=== PATIENT | female | born 1955 | race Caucasian/White ===

== ENCOUNTER 2017-04-20 11:45 | Emergency (ER) | payer BC ==
[2017-04-20] MEDS ORDERED: Ondansetron INJ* 2 MG/ML VIAL IV ONE (13:25)
[2017-04-20] MEDS ORDERED: Morphine INJ* 4 MG/ML 1 ML CARPUJECT IV ONE (13:25)
[2017-04-20 14:32] LABS: ABS Basophils 0 10^3/ul (0-0.2); ABS Eosinophils 0.1 10^3/ul (0-0.6); ABS Lymphocytes 1.4 10^3/ul (1.0-4.8); ABS Monocytes 0.6 10^3/ul (0-0.8); ABS Neutrophils 5.4 10^3/ul (1.5-7.7); ABS Nucleated RBC 0 10^3/ul; Eosinophil % 1.3 % (0-6); Hematocrit 40 % (35-47); Hemoglobin 13.7 g/dl (12.0-16.0); Lymphocyte % 18.4 % (25-47); Mean Corpuscular HGB Conc 34 g/dl (31-36); Mean Corpuscular Hemoglobin 28 pg (27-31); Mean Corpuscular Volume 81 fL (80-97); Mean Platelet Volume 8 um3 (7.4-10.4); Nucleated Red Blood Cells % 0.1; Platelet Count 186 10^3/ul (150-450); Red Blood Count 4.94 10^6/ul (4.0-5.4); Red Cell Distribution Width 14 % (10.5-15); White Blood Count 7.5 10^3/ul (3.5-10.8)
[2017-04-20 15:04] LABS: EGFR Non-African American 87.7 (>60)
[2017-04-20] MEDS ORDERED: Iohexol 300* (CONTRAST) 10 ML SDV IV ONE (15:18)
--- NOTE | 2017-04-20 16:31 | RAD ---
CLINICAL HISTORY: Abdominal pain, left upper quadrant pain COMPARISON: CT of the chest dated September 29, 2014 TECHNIQUE: Multiple contiguous axial CT scans were obtained of the abdomen and pelvis after the administration of intravenous contrast. Coronal and sagittal multiplanar reformations are submitted for review. Oral contrast was administered. Delayed images were obtained through the abdomen and pelvis. FINDINGS: LUNG BASES: There are multiple small nodules within the lungs bilaterally measuring up to 0.4 cm in size. There is dilatation of the ascending thoracic aorta up to 5.2 cm. This is similar to the previous examination. 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 LIVER: There has been interval development of a heterogeneously low-attenuation mass of the posterior superior segment of the right lobe of liver with smaller lesions noted elsewhere. The dominant mass measures approximately 9.6 x 6.7 cm transversely. BILE DUCTS: There is no intrahepatic or extrahepatic biliary dilatation. GALLBLADDER: The gallbladder is normal, without pericholecystic inflammatory change. PANCREAS: The pancreas is normal, without mass or ductal dilatation. SPLEEN: Normal in size and appearance. UPPER GI TRACT: Evaluation of the gastrointestinal tract is limited by incomplete gastric distention. The upper GI tract is unremarkable. SMALL BOWEL AND MESENTERY: The small bowel is normal in contour, course, and caliber. There is no obstruction or dilatation. COLON: The colon is normal in contour, course, caliber. There is no pericolonic inflammatory change. ADRENALS: Normal bilaterally. KIDNEYS: The kidneys are normal in shape, size, contour, and axis. There is no hydronephrosis or nephrolithiasis. BLADDER: The bladder is smooth in contour. PELVIC ORGANS: The uterus and adnexa are grossly normal for technique. AORTA: There is calcific atherosclerotic disease of the abdominal aorta and its branches, without aneurysmal dilatation IVC: Unremarkable LYMPH NODES: There are enlarged centrally necrotic lymph nodes noted at the level of the brianna hepatis, and in the aortocaval space, with prominent lymph nodes noted in the left para-aortic space. The largest lymph node measures up to 2.1 cm in short axis. ABDOMINAL WALL: There is no evidence for abdominal wall hernia. BONES AND SOFT TISSUES: Degenerative changes noted of the spine. OTHER: None IMPRESSION: 1. THERE HAS BEEN INTERVAL DEVELOPMENT OF AN ILL-DEFINED LOW-ATTENUATION MASS OF THE RIGHT LOBE OF LIVER, WITH MULTIPLE SMALLER LESIONS THROUGHOUT THE LIVER. THE DOMINANT MASS MEASURES UP TO 9.6 CM IN SIZE. THIS IS MOST CONSISTENT WITH NEOPLASM. 2. ADDITIONALLY, THERE ARE MULTIPLE PULMONARY PARENCHYMAL NODULES WELL RETROPERITONEAL LYMPHADENOPATHY CONSISTENT WITH METASTATIC DISEASE. 3. ATHEROSCLEROSIS. 4. 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
[2017-04-20 16:47] LABS: Urine Appearance Clear; Urine Blood Negative (Negative); Urine Color Yellow; Urine Ketones Negative (Negative); Urine Protein Negative (Negative); Urine Specific Gravity 1.021 (1.010-1.030); Urine Urobilinogen Negative (Negative)
[2017-04-20] MEDS ORDERED: oxyCODONE/Acetamin 5/325 MG* TAB PO ONE (18:07)
[2017-04-20 18:27] VITALS: BP 132/85
--- NOTE | 2017-04-21 16:48 | ED ---
Rohan Guerrero Thomas, scribed for Luis A Alejo MD on 04/20/17 at 1421 . Abdominal Pain/Female - HPI Summary HPI Summary: The patient presents with LUQ abdominal pain for the last two weeks that radiates to her back. The pain is rated 7/10 and she describes it as a knot. She complains of constipation, and her last BM was two days ago. She is not on any pain medication. She denies nausea, vomiting, and diarrhea. Past medical history includes ascending aorta aneurysm, paracentesis, and paroxysmal A-Fib. - History of Current Complaint Chief Complaint: EDAbdPain Stated Complaint: ABD PAIN Time Seen by Provider: 04/20/17 13:17 Hx Obtained From: Patient Onset/Duration: Lasting Weeks - 2, Still Present Timing: Constant Pain Intensity: 5 Pain Scale Used: 0-10 Numeric Location: Discrete At: LUQ Radiates: Yes Radiates to: Back Character: Other: - "knot" Aggravating Factor(s): Nothing Alleviating Factor(s): Nothing Associated Signs and Symptoms: Positive: Constipation. Negative: Nausea, Vomiting, Diarrhea Allergies/Adverse Reactions: Allergies Allergy/AdvReac Type Severity Reaction Status Date / Time BEES Allergy Unknown Difficulty Uncoded 04/20/17 16:02 Breathing Home Medications: Home Medications Albuterol HFA INHALER* [Ventolin HFA Inhaler*] 1 puff INH Q4H PRN 04/20/17 [ History Confirmed 04/20/17] Aspirin EC TAB* [Ecotrin EC TAB*] 975 mg PO QAM 04/20/17 [History Confirmed 11/27] Aspirin EC TAB* [Ecotrin EC TAB*] 975 mg PO QPM 04/20/17 [History Confirmed 11/27] Atorvastatin* [Lipitor*] 40 mg PO DAILY 04/20/17 [History Confirmed 04/20/17] Cetirizine* [ZyrTEC 10 MG TAB*] 10 mg PO DAILY 04/20/17 [History Confirmed 04/20] Ferrous Fum/Liver Ext/Bcomp,C [Liver with Iron Tablet] 1 - 2 tab PO DAILY [History Confirmed 04/20/17] Metoprolol Succinate XL TAB* [Toprol XL TAB*] 100 mg PO DAILY 04/20/17 [History Confirmed 04/20/17] Omeprazole CAP* [Prilosec CAP* 20 MG] 40 mg PO DAILY 04/20/17 [History Confirmed 04/20/17] amLODIPine TAB* [Norvasc 5 mg TAB*] 2.5 mg PO DAILY 04/20/17 [History Confirmed 04/20/17] PMH/Surg Hx/FS Hx/Imm Hx Endocrine/Hematology History: Denies: Hx Diabetes Cardiovascular History: Denies: Hx Congestive Heart Failure Psychiatric History: Reports: Hx Substance Abuse - went to rehab 3 years ago per her report - Immunization History Date of Tetanus Vaccine: Unsure Date of Influenza Vaccine: unsure Infectious Disease History: No Infectious Disease History: Denies: Traveled Outside the [place] in Last 30 Days - Family History Known Family History: Positive: Other - Patinet denies relevant FHx - Social History Alcohol Use: None Substance Use Type: Reports: None Smoking Status (MU): Former Smoker Review of Systems Negative: Fever Positive: Abdominal Pain, Other - constipation. Negative: Vomiting, Diarrhea, Nausea All Other Systems Reviewed And Are Negative: Yes Physical Exam - Summary Physical Exam Summary: VITAL SIGNS: Reviewed. GENERAL: Patient is a well-developed and nourished female who is lying comfortable in the stretcher. Patient is not in any acute respiratory distress. HEAD AND FACE: No signs of trauma. No ecchymosis, hematomas or skull depressions. No sinus tenderness. EYES: PERRLA, EOMI x 2, No injected conjunctiva, no nystagmus. EARS: Hearing grossly intact. Ear canals and tympanic membranes are within normal limits. MOUTH: Oropharynx within normal limits. NECK: Supple, trachea is midline, no adenopathy, no JVD, no carotid bruit, no c- spine tenderness, neck with full ROM. CHEST: Symmetric, no tenderness at palpation LUNGS: Clear to auscultation bilaterally. No wheezing or crackles. CVS: Regular rate and rhythm, S1 and S2 present, no murmurs or gallops appreciated. ABDOMEN: Soft. She has RUQ and LUQ tenderness. No signs of distention. No rebound no guarding, and no masses palpated. Bowel sounds are normal. EXTREMITIES: FROM in all major joints, no edema, no cyanosis or clubbing. NEURO: Alert and oriented x 3. No acute neurological deficits. Speech is normal and follows commands. SKIN: Dry and warm Triage Information Reviewed: Yes Vital Signs On Initial Exam: Initial Vitals Temp Pulse Resp BP Pulse Ox 97.9 F 72 18 130/98 95 04/20/17 11:55 04/20/17 11:55 04/20/17 11:55 04/20/17 11:55 04/20/17 11:55 Vital Signs Reviewed: Yes Diagnostics - Vital Signs Vital Signs Temp Pulse Resp BP Pulse Ox 04/20/17 14:11 17 04/20/17 11:55 97.9 F 72 18 130/98 95 - Laboratory Result Diagrams: 04/20/17 14:05 04/20/17 14:05 Lab Statement: Any lab studies that have been ordered have been reviewed, and results considered in the medical decision making process. - CT CT Abd/Pel CT Interpretation: Positive (See Comments) - 1. THERE HAS BEEN INTERVAL DEVELOPMENT OF AN ILL-DEFINED LOW-ATTENUATION MASS OF THE RIGHT LOBE OF LIVER, WITH MULTIPLE SMALLER LESIONS THROUGHOUT THE LIVER. THE DOMINANT MASS MEASURES UP TO 9.6 CM IN SIZE. THIS IS MOST CONSISTENT WITH NEOPLASM. 2. ADDITIONALLY, THERE ARE MULTIPLE PULMONARY PARENCHYMAL NODULES WELL RETROPERITONEAL LYMPHADENOPATHY CONSISTENT WITH METASTATIC DISEASE. 3. ATHEROSCLEROSIS. 4. 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 Dr. Alejo has reviewed this report. CT Interpretation Completed By: Radiologist - EKG 13:36 Cardiac Rate: NL EKG Rhythm: Atrial Fibrillation - at 71 BPM EKG Interpretation: TWI in V3, V4. This is new since previous EKG on 09/29/14. Abdominal Pain Fem Course/Dx - Course Course Of Treatment: The patient presents with LUQ abdominal pain for the last two weeks that radiates to her back. The pain is rated 7/10 and she describes it as a knot. She complains of constipation, and her last BM was two days ago. She is not on any pain medication. She denies nausea, vomiting, and diarrhea. Past medical history includes ascending aorta aneurysm, paracentesis, and paroxysmal A-Fib. Test results are without any significant abnormalities except sodium 125. Urinalysis is negative for UTI. CT Abd/Pel shows 1. THERE HAS BEEN INTERVAL DEVELOPMENT OF AN ILL-DEFINED LOW-ATTENUATION MASS OF THE RIGHT LOBE OF LIVER, WITH MULTIPLE SMALLER LESIONS THROUGHOUT THE LIVER. THE DOMINANT MASS MEASURES UP TO 9.6 CM IN SIZE. THIS IS MOST CONSISTENT WITH NEOPLASM. 2. ADDITIONALLY, THERE ARE MULTIPLE PULMONARY PARENCHYMAL NODULES WELL RETROPERITONEAL LYMPHADENOPATHY CONSISTENT WITH METASTATIC DISEASE. 3. ATHEROSCLEROSIS. 4. 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 At this point, I offered the patient admission to the hospitalist. Dr. Delaney accepted the patient, however the patient declined admission. I discussed the case with Dr. Stephens, and she is OK with the patient being discharged. Dr. Stephens will see the patient at an appointment in three days for further workup. The patient is being given pain medication and will follow up with Dr. Stephens in three days. The patient is hemodynamically stable and alert and oriented x3. - Diagnoses Provider Diagnoses: Abdominal pain, Hyponatremia, Liver mass - Provider Notifications Discussed Care Of Patient With: Vanessa Delaney Time Discussed With Above Provider: 17:30 Instructed by Provider To: Other - Dr. Delaney, hospitalist, accepted the patient for admission. I also consulted with Dr. Stephens, who will see the patient in three days. Discharge - Discharge Plan Condition: Stable Disposition: HOME Prescriptions: oxyCODONE/Acetamin 5/325 MG* [Percocet 5/325 TAB*] 1 tab PO Q6H PRN #12 tab MDD 4 PRN Reason: Pain Patient Education Materials: Hyponatremia (ED), Abdominal Pain (ED) Referrals: Vanessa Stephens MD [Medical Doctor] - 04/23/17 Additional Instructions: Follow up with Dr. Stephens, oncology, on Sunday, 04/23. Return to the emergency department for any new or worsening symptoms. The documentation as recorded by the Rohan marie Thomas accurately reflects the service I personally performed and the decisions made by me, Luis A Alejo MD.
== END 2017-04-20 18:25 | disposition home or self-care (01) ==
LOC: ED 11:45
DX: R10.12 Left upper quadrant pain (principal); E87.1 Hypo-osmolality and hyponatremia; R16.0 Hepatomegaly, not elsewhere classified; I70.0 Atherosclerosis of aorta; Z87.891 Personal history of nicotine dependence
CPT/HCPCS: 36415; 74177; 80053; 81003; 82150; 82550; 83690; 83735; 84484; 85025; 86140; 93005; 96374; 96375; 99283; A9270-GY; J2270; J2405; Q9967

== ENCOUNTER 2017-07-02 13:41 | Inpatient (IN) | payer BC ==
[2017-07-02] MEDS ORDERED: Prochlorperazine TAB* 10 MG PO PRN (13:57)
[2017-07-02] MEDS: Morphine TAB Extended Release (*) 30 MG TAB.ER PO SCH ×2 (16:06→21:02)
[2017-07-02] MEDS: Magnesium Oxide TAB* 400 MG PO SCH ×2 (16:07→21:02)
[2017-07-02] MEDS: Enoxaparin(*) 40 MG/0.4 ML SYR SUBCUT SCH (16:08)
[2017-07-02] MEDS: NS 0.9% 1000 ML* 1,000 ML IV SCH ×2 (16:12→16:50)
--- NOTE | 2017-07-02 16:29 | RAD ---
Indication: Rising bilirubin. Intrahepatic bile duct carcinoma. Biopsy-proven cholangiocarcinoma lesion at the posterior RIGHT hepatic lobe from fine-needle aspiration biopsy performed April 30, 2017. Comparison: June 25, [address] and April 20, [address] Technique: RIGHT upper quadrant ultrasound. Report: Limited exam due to inability to hold breath. Small RIGHT pleural effusion noted likely increase in size from the June 25, [address] Appropriate direction flow documented in the portal and hepatic veins. 14.1 cm liver is heterogeneously increased in echogenicity. Multiple ill-defined focal mildly hypoechoic lesions with the largest seen at the posterior dome of the RIGHT hepatic lobe measuring up to 9.2 x 5.9 x 5.0 cm. Comparison with the prior CT is limited due to difference in technique. Negative for intrahepatic biliary dilatation. 8.2 mm mildly dilated common bile duct without significant change compared with June 25, [address] Adequately distended gallbladder with normal range 2.4 mm wall is remarkable for a small volume of dependent biliary sludge. Diffuse abdominal pain on exam without compelling specific sonographic Wilcox's sign. The pancreas is largely obscured due to bowel gas. The visualized pancreas is without gross evidence for duct dilatation. Negative for ascites. 10.9 cm RIGHT kidney is unremarkable. IMPRESSION: 1. Small RIGHT pleural effusion slightly increased in size from June 25, [address] 2. Multiple ill-defined focal mildly hypoechoic lesions with the largest seen at the posterior dome of the RIGHT hepatic lobe measuring up to 9.2 x 5.9 x 5.0 cm. Comparison with the prior CT is limited due to difference in technique. 3. Mild extrahepatic biliary dilatation without significant interval change compared with June 25, [address] The biliary dilatation appears new compared with the April 20, [address] 4. Negative for ascites.
[2017-07-02] MEDS: traMADol TAB* 50 MG PO PRN (21:03)
[2017-07-03] MEDS: NS 0.9% 1000 ML* 1,000 ML IV SCH (02:51)
[2017-07-03 06:50] LABS: Hematocrit 28 % (35-47); Hemoglobin 10.2 g/dl (12.0-16.0); Mean Corpuscular HGB Conc 36 g/dl (31-36); Mean Corpuscular Hemoglobin 28 pg (27-31); Mean Corpuscular Volume 78 fL (80-97); Mean Platelet Volume 7.4 um3 (7.4-10.4); Platelet Count 177 10^3/ul (150-450); Red Blood Count 3.58 10^6/ul (4.0-5.4); Red Cell Distribution Width 15 % (10.5-15); White Blood Count 7.7 10^3/ul (3.5-10.8)
[2017-07-03 06:54] LABS: ABS Basophils 0 10^3/ul (0-0.2); ABS Eosinophils 0 10^3/ul (0-0.6); ABS Lymphocytes 0.5 10^3/ul (1.0-4.8); ABS Monocytes 0.1 10^3/ul (0-0.8); ABS Neutrophils 7.1 10^3/ul (1.5-7.7); ABS Nucleated RBC 0 10^3/ul; Eosinophil % 0.6 % (0-6); Nucleated Red Blood Cells % 0
[2017-07-03 07:04] LABS: EGFR Non-African American 176.4 (>60)
[2017-07-03] MEDS: amLODIPine TAB* 5 MG PO SCH ×2 (08:19→20:46)
[2017-07-03] MEDS: Atorvastatin* 40 MG TAB PO SCH (08:19)
[2017-07-03] MEDS: Multivitamins/Minerals TAB PO SCH (08:20)
[2017-07-03] MEDS: Cetirizine* 10 MG TAB PO SCH (08:20)
[2017-07-03] MEDS: Magnesium Oxide TAB* 400 MG PO SCH ×3 (08:20→20:46)
[2017-07-03] MEDS: Aspirin 81 mg CHEW TAB* 81 MG TAB.CHEW PO SCH (08:20)
[2017-07-03] MEDS: Morphine TAB Extended Release (*) 30 MG TAB.ER PO SCH ×3 (08:20→20:46)
[2017-07-03] MEDS: Omeprazole CAP* 20 MG PO SCH (08:20)
[2017-07-03] MEDS: Potassium Chlor TAB* 20 MEQ TAB.ER PO SCH (08:20)
[2017-07-03] MEDS: Metoprolol Succinate XL TAB* 100 MG PO SCH (08:20)
[2017-07-03] MEDS: traMADol TAB* 50 MG PO PRN ×3 (08:21→22:29)
[2017-07-03] MEDS: Sodium Chloride TAB* 1 GM PO SCH ×3 (09:13→20:46)
--- NOTE | 2017-07-03 10:11 | PN ---
Progress Note - Progress Note Date of Service: 07/03/17 SOAP: Subjective: [Ana M reports that she is feeling relatively poorly. She has some dyspnea at rest, noted LE edema develop with IVF. She rates her chronic abdominal pain at ~4/10, which she states is manageable. She is drinking Kefir and gatorade, not interested in eating anything else.] Objective: [ Amlodipine Besylate (Norvasc Tab*) 2.5 mg PO DAILY [facility] Aspirin (Aspirin 81 Mg Chew Tab*) 81 mg PO DAILY [facility] Last Admin: 07/03/17 08:20 Dose: 81 mg Atorvastatin Calcium (Lipitor*) 40 mg PO DAILY [facility] Last Admin: 07/03/17 08:19 Dose: 40 mg Cetirizine HCl (Zyrtec*) 10 mg PO DAILY [facility] PRN Reason: Protocol Last Admin: 07/03/17 08:20 Dose: 10 mg Enoxaparin Sodium (Lovenox(*)) 40 mg SUBCUT Q24H [facility] Last Admin: 07/02/17 16:08 Dose: 40 mg Heparin Sodium (Porcine) (Heparin Flush Port (Ivad)) 5 ml FLUSH DAILY [facility] PRN Reason: Protocol Last Admin: 07/03/17 09:19 Dose: 5 ml Magnesium Oxide (Magox 400 Tab*) 800 mg PO TID [facility] Last Admin: 07/03/17 08:20 Dose: 800 mg Metoprolol Succinate (Toprol Xl Tab*) 100 mg PO DAILY [facility] Last Admin: 07/03/17 08:20 Dose: 100 mg Morphine Sulfate (Ms Contin(*)) 30 mg PO TID [facility] Last Admin: 07/03/17 08:20 Dose: 30 mg Multivitamins/Minerals (Theragran/Minerals Tab*) 1 tab PO DAILY [facility] Last Admin: 07/03/17 08:20 Dose: 1 tab Omeprazole (Prilosec Cap*) 40 mg PO DAILY@0730 [facility] Last Admin: 07/03/17 08:20 Dose: 40 mg Potassium Chloride (Klor Con Er Tab*) 20 meq PO DAILY WITH MEAL [facility] Last Admin: 07/03/17 08:20 Dose: 20 meq Prochlorperazine (Compazine Tab*) 10 mg PO Q6H PRN PRN Reason: NAUSEA Sodium Chloride (Sodium Chloride Tab*) 1 gm PO TID [facility] Last Admin: 07/03/17 09:13 Dose: 1 gm Tramadol HCl (Ultram*) 50 mg PO Q6HR PRN PRN Reason: PAIN Last Admin: 07/03/17 08:21 Dose: 50 mg Laboratory Results - last 24 hr 07/03/17 07/03/17 06:24 06:24 WBC 7.7 RBC 3.58 L Hgb 10.2 L Hct 28 L MCV 78 L MCH 28 MCHC 36 RDW 15 Plt Count 177 MPV 7.4 Neut % (Auto) 92.4 H Lymph % (Auto) 6.0 L [place] % (Auto) 0.8 Eos % (Auto) 0.6 Baso % (Auto) 0.2 Absolute Neuts (auto) 7.1 Absolute Lymphs (auto) 0.5 L Absolute Monos (auto) 0.1 Absolute Eos (auto) 0 Absolute Basos (auto) 0 Absolute Nucleated RBC 0 Nucleated RBC % 0 Sodium 119 L* Potassium 4.4 Chloride 88 L Carbon Dioxide 25 Anion Gap 6 BUN 8 Creatinine 0.37 L Est GFR ( Amer) 226.8 Est GFR (Non-Af Amer) 176.4 BUN/Creatinine Ratio 21.6 H Glucose 119 H Calcium 8.2 L Magnesium 1.8 L Total Bilirubin 1.60 H AST 47 H ALT 27 Alkaline Phosphatase 197 H Total Protein 5.8 L Albumin 2.8 L Globulin 3.0 Albumin/Globulin Ratio 0.9 L Vital Signs: Temp Pulse Resp BP Pulse Ox 97.4 F 84 18 125/75 99 07/03/17 07:19 07/03/17 07:19 07/03/17 08:21 07/03/17 07:19 07/03/17 07:19 Exam: Gen: 62 yo female who appears chronically ill in NAD HEENT: MMM CV: RRR, murmur appreciated Resp: lungs CTA Abd: soft, diffusely TTP, bowel sounds present Ext: trace to 1+ edema] Assessment: [62 yo female with metastatic cholangiocarcinoma who had rather significant disease progression with immunotherapy who was admitted yesterday for severe hyponatremia following treatment with gemcitabine 06/29. She has progressive dyspnea related to pulm mets and chronic abd pain due to her malignancy which is reported as manageable.] Plan: [1. Hyponatremia - there is some chronicity to this, baseline in the mid 120s, likely due to SIADH - relatively asx - little improvement with NS - stop IVF, start NaCl tabs 2. Metastatic cholangiocarcinoma - disease progression with immunotherapy - unable to tolerate second line therapy (gemcitabine/cisplatin) due to metabolic derangements - discussed palliative/hospice therapy which she is starting to consider - palliative consult has been requested, she would like her sister present for any additional conversations]
[2017-07-03] MEDS: Enoxaparin(*) 40 MG/0.4 ML SYR SUBCUT SCH (13:37)
--- NOTE | 2017-07-03 14:28 | CONSULT ---
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 She had initiated therapy with Gemcetabine but was discovered to have major electrolyte disturbances with severe hyponatremia as well as K+ and Mg++ disturbances. She is now facing no further options for treatment, and she was glad to be able to discuss palliative options. The patient has been living with her two sisters, Lissa Scherer and Puma, in a house on [facility]. She has not worked since she moved to [facility] about 8 years ago after her . She has one son who lives in [place] whom she has not seen in 10 years or so. She has an additional PMH of an ascending aortic aneurysm, which she was scheduled to have repaired at [facility] in [place] prior to her cancer diagnosis. Currently she has 4/10 pain, controlled with morphine, anorexia (taking only Kefir and Ensure, refusing solid food), weakness and fatigue. Her pain was originally in her back, but now involves her abdomen as well. Lab Values: Abnormal Lab Results 07/03/17 07/03/17 06:24 06:24 WBC 7.7 RBC 3.58 L Hgb 10.2 L Hct 28 L MCV 78 L MCH 28 MCHC 36 RDW 15 Plt Count 177 MPV 7.4 Neut % (Auto) 92.4 H Lymph % (Auto) 6.0 L Houghton % (Auto) 0.8 Eos % (Auto) 0.6 Baso % (Auto) 0.2 Absolute Neuts (auto) 7.1 Absolute Lymphs (auto) 0.5 L Absolute Monos (auto) 0.1 Absolute Eos (auto) 0 Absolute Basos (auto) 0 Absolute Nucleated RBC 0 Nucleated RBC % 0 Sodium 119 L* Potassium 4.4 Chloride 88 L Carbon Dioxide 25 Anion Gap 6 BUN 8 Creatinine 0.37 L Est GFR ( Amer) 226.8 Est GFR (Non-Af Amer) 176.4 BUN/Creatinine Ratio 21.6 H Glucose 119 H Calcium 8.2 L Magnesium 1.8 L Total Bilirubin 1.60 H AST 47 H ALT 27 Alkaline Phosphatase 197 H Total Protein 5.8 L Albumin 2.8 L Globulin 3.0 Albumin/Globulin Ratio 0.9 L Laboratory Last Values WBC 7.7 10^3/ul (3.5-10.8) 07/03/17 06:24 RBC 3.58 10^6/ul (4.0-5.4) L 07/03/17 06:24 Hgb 10.2 g/dl (12.0-16.0) L 07/03/17 06:24 Hct 28 % (35-47) L 07/03/17 06:24 MCV 78 fL (80-97) L 07/03/17 06:24 MCH 28 pg (27-31) 07/03/17 06:24 MCHC 36 g/dl (31-36) 07/03/17 06:24 RDW 15 % (10.5-15) 07/03/17 06:24 Plt Count 177 10^3/ul (150-450) 07/03/17 06:24 MPV 7.4 um3 (7.4-10.4) 07/03/17 06:24 Neut % (Auto) 92.4 % (38-83) H 07/03/17 06:24 Lymph % (Auto) 6.0 % (25-47) L 07/03/17 06:24 Houghton % (Auto) 0.8 % (0-7) 07/03/17 06:24 Eos % (Auto) 0.6 % (0-6) 07/03/17 06:24 Baso % (Auto) 0.2 % (0-2) 07/03/17 06:24 Absolute Neuts (auto) 7.1 10^3/ul (1.5-7.7) 07/03/17 06:24 Absolute Lymphs (auto) 0.5 10^3/ul (1.0-4.8) L 07/03/17 06:24 Absolute Monos (auto) 0.1 10^3/ul (0-0.8) 07/03/17 06:24 Absolute Eos (auto) 0 10^3/ul (0-0.6) 07/03/17 06:24 Absolute Basos (auto) 0 10^3/ul (0-0.2) 07/03/17 06:24 Absolute Nucleated RBC 0 10^3/ul 07/03/17 06:24 Nucleated RBC % 0 07/03/17 06:24 Sodium 119 mmol/L (139-145) L* 07/03/17 06:24 Potassium 4.4 mmol/L (3.5-5.0) 07/03/17 06:24 Chloride 88 mmol/L (101-111) L 07/03/17 06:24 Carbon Dioxide 25 mmol/L (22-32) 07/03/17 06:24 Anion Gap 6 mmol/L (2-11) 07/03/17 06:24 BUN 8 mg/dL (6-24) 07/03/17 06:24 Creatinine 0.37 mg/dL (0.51-0.95) L 07/03/17 06:24 Est GFR ( Amer) 226.8 (>60) 07/03/17 06:24 Est GFR (Non-Af Amer) 176.4 (>60) 07/03/17 06:24 BUN/Creatinine Ratio 21.6 (8-20) H 07/03/17 06:24 Glucose 119 mg/dL (70-100) H 07/03/17 06:24 Calcium 8.2 mg/dL (8.6-10.3) L 07/03/17 06:24 Magnesium 1.8 mg/dL (1.9-2.7) L 07/03/17 06:24 Total Bilirubin 1.60 mg/dL (0.2-1.0) H 07/03/17 06:24 AST 47 U/L (13-39) H 07/03/17 06:24 ALT 27 U/L (7-52) 07/03/17 06:24 Alkaline Phosphatase 197 U/L (34-104) H 07/03/17 06:24 Total Protein 5.8 g/dL (6.4-8.9) L 07/03/17 06:24 Albumin 2.8 g/dL (3.2-5.2) L 07/03/17 06:24 Globulin 3.0 g/dL (2-4) 07/03/17 06:24 Albumin/Globulin Ratio 0.9 (1-3) L 07/03/17 06:24 - Objective Active Medications: Amlodipine Besylate (Norvasc Tab*) 2.5 mg PO DAILY [facility] Aspirin (Aspirin 81 Mg Chew Tab*) 81 mg PO DAILY [facility] Last Admin: 07/03/17 08:20 Dose: 81 mg Atorvastatin Calcium (Lipitor*) 40 mg PO DAILY [facility] Last Admin: 07/03/17 08:19 Dose: 40 mg Cetirizine HCl (Zyrtec*) 10 mg PO DAILY [facility] PRN Reason: Protocol Last Admin: 07/03/17 08:20 Dose: 10 mg Enoxaparin Sodium (Lovenox(*)) 40 mg SUBCUT Q24H [facility] Last Admin: 07/03/17 13:37 Dose: 40 mg Heparin Sodium (Porcine) (Heparin Flush Port (Ivad)) 5 ml FLUSH DAILY [facility] PRN Reason: Protocol Last Admin: 07/03/17 09:19 Dose: 5 ml Magnesium Oxide (Magox 400 Tab*) 800 mg PO TID [facility] Last Admin: 07/03/17 13:36 Dose: 800 mg Metoprolol Succinate (Toprol Xl Tab*) 100 mg PO DAILY [facility] Last Admin: 07/03/17 08:20 Dose: 100 mg Morphine Sulfate (Ms Contin(*)) 30 mg PO TID [facility] Last Admin: 07/03/17 13:36 Dose: 30 mg Multivitamins/Minerals (Theragran/Minerals Tab*) 1 tab PO DAILY [facility] Last Admin: 07/03/17 08:20 Dose: 1 tab Omeprazole (Prilosec Cap*) 40 mg PO DAILY@0730 [facility] Last Admin: 07/03/17 08:20 Dose: 40 mg Potassium Chloride (Klor Con Er Tab*) 20 meq PO DAILY WITH MEAL [facility] Last Admin: 07/03/17 08:20 Dose: 20 meq Prochlorperazine (Compazine Tab*) 10 mg PO Q6H PRN PRN Reason: NAUSEA Sodium Chloride (Sodium Chloride Tab*) 1 gm PO TID [facility] Last Admin: 07/03/17 13:36 Dose: 1 gm Tramadol HCl (Ultram*) 50 mg PO Q6HR PRN PRN Reason: PAIN Last Admin: 07/03/17 08:21 Dose: 50 mg Vital Signs: Vital Signs: Temp Pulse Resp BP Pulse Ox 97.4 F 84 16 125/75 99 07/03/17 07:19 07/03/17 07:19 07/03/17 13:36 07/03/17 07:19 07/03/17 07:19 Patient Weight: Weight 162 lb Intake and Output: Intake & Output 07/01/17 07/02/17 07/03/17 07/04/17 06:59 06:59 06:59 06:59 Intake Total 2972 1482 Output Total 300 Balance 2672 1482 Weight 162 lb Intake: IV Fluids 1347 NS (0.9%) 1347 IVPB 1100 291 NS (0.9%) 1000 291 mag 4gm 100 Oral 525 1191 Output: Urine 300 Other: Estimated Void Small # Bowel Movements 0 Estimated Stool Amount Medium # Voids 1 ADLs: Meal Record Start: 07/02/17 15: 22 Freq: DAILY@0900,1400,1800 Status: Active Protocol: Created 07/02/17 15:22 System (Rec: 07/02/17 15:22 System [email or web address]) Document 07/03/17 09:00 [id number] (Rec: 07/03/17 13:08 [id number]) Document 07/03/17 13:08 [id number] (Rec: 07/03/17 13:08 [id number]) Intake and Output Start: 07/02/17 15: 22 Freq: DAILY@0600,1400,2200 Status: Active Protocol: Created 07/02/17 15:22 System (Rec: 07/02/17 15:22 System [email or web address]) Document 07/02/17 21:30 [id number] (Rec: 07/02/17 21:31 [id number] [id number]) Document 07/03/17 05:53 [id number] (Rec: 07/03/17 05:53 [id number] TELE-C34) Document 07/03/17 08:23 [id number] (Rec: 07/03/17 08:23 [id number]) General Impression: Pleasant, mildly jaundiced, ambulating woman, having some memory impairment but otherwise cognitively intact. Head: Symmetrical Eyes: PERRLA Ears/Nose/Mouth/Throat: Mucous Membranes Moist, - - edentulous Neck: Trachea Midline Cardiovascular: NL Sounds; No Murmurs; No JVD Respiratory: Symmetrical Chest Expansion and Respiratory Effort Extremities: No Clubbing, Cyanosis Neurological: Alert and Oriented x 3 - Assessment Assessment: This patient has had to process a lot of bad news in the last month and a half. She is however, quite adaptable and states she is surprised she has lived as long as this! She was interested in the hospice benefit and would like to return to her home with her 2 sisters as caretakers. She qualifies for hospice servces on the basis of her stage IV cholangiocarcinoma. She has a positive impression of hospice as her mother, Zee Cook, at [facility] a year or so ago. She signed a HCP naming her 2 sisters as proxies, and also signed a MOLST form specifying comfort measures only. I plan to meet with the sisters when they arrive this afternoon to visit with her. - Plan Consult Plan (MU): Hospice - Time On Unit Date of Evaluation: 07/03/17 Hospice Consult Time in: 13:45 Hospice Consult Time Out: 14:45 Hospice Consult Time Total: 60 > 50% of Time Spend In Counseling or Coordinating Care: Yes
[2017-07-04] MEDS: Omeprazole CAP* 20 MG PO SCH (08:42)
[2017-07-04] MEDS: Cetirizine* 10 MG TAB PO SCH (08:43)
[2017-07-04] MEDS: Aspirin 81 mg CHEW TAB* 81 MG TAB.CHEW PO SCH (08:43)
[2017-07-04] MEDS: Atorvastatin* 40 MG TAB PO SCH (08:43)
[2017-07-04] MEDS: traMADol TAB* 50 MG PO PRN (08:44)
[2017-07-04] MEDS: Metoprolol Succinate XL TAB* 100 MG PO SCH (08:44)
[2017-07-04] MEDS: Multivitamins/Minerals TAB PO SCH (08:44)
[2017-07-04] MEDS: Magnesium Oxide TAB* 400 MG PO SCH (08:45)
[2017-07-04] MEDS: Morphine TAB Extended Release (*) 30 MG TAB.ER PO SCH (08:45)
[2017-07-04] MEDS: Potassium Chlor TAB* 20 MEQ TAB.ER PO SCH (08:46)
[2017-07-04] MEDS: Sodium Chloride TAB* 1 GM PO SCH (08:46)
[2017-07-04] MEDS: amLODIPine TAB* 5 MG PO SCH (08:47)
[2017-07-04 10:15] LABS: ABS Basophils 0 10^3/ul (0-0.2); ABS Eosinophils 0 10^3/ul (0-0.6); ABS Lymphocytes 0.6 10^3/ul (1.0-4.8); ABS Monocytes 0.2 10^3/ul (0-0.8); ABS Neutrophils 3.1 10^3/ul (1.5-7.7); ABS Nucleated RBC 0 10^3/ul; Eosinophil % 1.3 % (0-6); Hematocrit 28 % (35-47); Lymphocyte % 14.9 % (25-47); Mean Corpuscular HGB Conc 35 g/dl (31-36); Mean Corpuscular Hemoglobin 28 pg (27-31); Mean Corpuscular Volume 78 fL (80-97); Nucleated Red Blood Cells % 0; Platelet Count 186 10^3/ul (150-450); Red Blood Count 3.61 10^6/ul (4.0-5.4); Red Cell Distribution Width 15 % (10.5-15); White Blood Count 3.9 10^3/ul (3.5-10.8)
[2017-07-04 11:21] VITALS: BP 137/89
[2017-07-04] MEDS ORDERED: Sodium Chloride TAB* 1 GM PO SCH (14:00)
[2017-07-04] MEDS ORDERED: amLODIPine TAB* 5 MG PO SCH (21:00)
[2017-07-04] MEDS ORDERED: Aspirin 81 mg CHEW TAB* 81 MG TAB.CHEW PO SCH (21:00)
[2017-07-04] MEDS ORDERED: Atorvastatin* 40 MG TAB PO SCH (21:00)
--- NOTE | 2017-07-04 22:51 | DS ---
CC: Dr. Davila; Vanessa Stephens MD* DISCHARGE SUMMARY: DATE OF ADMISSION: 07/02/17 DATE OF DISCHARGE: 07/04/17 PRIMARY ONCOLOGIST: Vanessa Stephens MD CONSULTING PALLIATIVE CARE PHYSICIAN: Emely Diaz MD PRIMARY CARE PROVIDER: Dr. Davila. ATTENDING PHYSICIAN: Vanessa Stephens MD* (dictated by CRISTOBAL Starks). DISCHARGING PROVIDER: CRISTOBAL Starks PRIMARY DISCHARGE DIAGNOSES: 1. Hyponatremia. 2. Metastatic intrahepatic cholangiocarcinoma. DISCHARGE MEDICATIONS: 1. Amlodipine 2.5% p.o. daily. 2. Aspirin 81 mg p.o. daily. 3. Atorvastatin 40 mg p.o. daily. 4. Cetirizine 10 mg p.o. daily. 5. Coenzyme Q10, 1 capsule p.o. daily. 6. Magnesium oxide 800 mg p.o. 3 times daily. 7. Metoprolol succinate 100 mg p.o. daily. 8. Milk thistle 175 mg p.o. daily. 9. Morphine extended release 20 mg p.o. t.i.d. 10. Multivitamin 1 tablet p.o. daily. 11. Omeprazole 40 mg p.o. daily. 12. Potassium chloride 20 mEq p.o. daily. 13. Compazine 10 mg p.o. q.6 hours as needed for nausea and vomiting. 14. Sodium chloride 2 g p.o. 3 times daily. 15. Tramadol 50 mg p.o. q.6 hours as needed for pain. MEDICATION CHANGES: Start sodium chloride tablets. HOSPITAL IMAGING: Ultrasound of the liver shows a small right pleural effusion slightly increased in size compared to CT from 06/25/17, multiple ill-defined focal mildly hypoechoic lesions with the largest seen at the posterior dome of the right hepatic lobe measuring 9.2 x 5.9 x 5.0 cm. There is mild extrahepatic biliary dilatation without significant interval change compared to 06/25/17 CT, no evidence of ascites. HOSPITAL COURSE: This is a 62-year-old female with metastatic intrahepatic cholangiocarcinoma who was admitted to the hospital for severe hyponatremia. The patient was initially treated with pembrolizumab, but had marked progression after 2 cycles and had plans to start gemcitabine and cisplatin as second line therapy. At baseline, the patient has multiple electrolytes abnormalities including chronic hyponatremia. The day of treatment, 06/29/17, patient's sodium was 121 mmol/L. She received gemcitabine, but did not receive cisplatin. She returned on Sunday for labs and hydration and her sodium had fallen to 118 mmol/L. She had been feeling quite fatigued and had not been eating any solid foods and reported progressive weakness and dizziness. The patient was subsequently admitted to the hospital and received IV normal saline with slight improvement in her sodium levels and some improvement in her complaints of weakness. Due to patient's marked progression and poor tolerance of treatment with multiple electrolyte abnormalities, it is felt that the patient was not appropriate to continue additional chemotherapy. The patient met with palliative physician, Dr. Diaz, during her hospitalization and the patient was agreeable to proceed with palliative care and sign on to home hospice. The patient had been complaining of progressive dyspnea. CT scan from approximately 2 weeks ago noted multiple pulmonary nodules. She was noted to be hypoxic during her hospitalization and was started on 2 L via nasal cannula, and she will be discharged with continuous oxygen therapy. DISPOSITION AND FOLLOWUP PLAN: The patient is being discharged to home. She will sign on with home hospice following discharge. She requires continuous oxygen therapy as listed above. Further chemotherapy will not be offered at this time. Recommend sodium chloride tablets as listed above to avoid symptomatic hyponatremia. CRISTOBAL STARKS [id number]/[facility] #: [id number] MTDD
== END 2017-07-04 14:20 | disposition home or self-care (01) | DRG 425 ==
LOC: MEDTELE 14:56
PROVIDERS: ADMIT Internal Medicine Hematology & Oncology; ATTEND Internal Medicine Hematology & Oncology
DX: E87.1 Hypo-osmolality and hyponatremia (principal); C22.1 Intrahepatic bile duct carcinoma; C78.00 Secondary malignant neoplasm of unspecified lung; C77.2 Secondary and unspecified malignant neoplasm of intra-abdominal lymph nodes; I10 Essential (primary) hypertension; E78.5 Hyperlipidemia, unspecified; I48.91 Unspecified atrial fibrillation; I35.0 Nonrheumatic aortic (valve) stenosis; I71.2 Thoracic aortic aneurysm, without rupture; E83.42 Hypomagnesemia; Z66 Do not resuscitate; G89.29 Other chronic pain; Z79.82 Long term (current) use of aspirin; Z91.030 Bee allergy status; Z91.018 Allergy to other foods; Z87.891 Personal history of nicotine dependence; Z80.8 Family history of malignant neoplasm of other organs or systems; R60.0 Localized edema; R09.02 Hypoxemia; E87.8 Other disorders of electrolyte and fluid balance, not elsewhere classified
CPT/HCPCS: 36415; 36591; 76705; 80048; 80053; 83735; 85025; 86301; 96360; 96365; 96366; 96367; 96368; 96413; 99213; 99214; 99222; 99233; 99239; A9270-GY; G0463; J1100; J1453; J1642; J1650; J2469; J3475; J3480; J9060; J9201; Q0164